=== PATIENT | male | born 1995 | race Caucasian/White ===

== ENCOUNTER 2016-10-02 18:33 | Emergency (ER) | payer OTHER ==
[2016-10-02 20:27] VITALS: BP 146/86
--- NOTE | 2016-10-02 21:29 | UC ---
[facility] HPI - HPI Summary HPI Summary: left posterior lower dental pain tooth #19 - History of Current Complaint Chief Complaint: UCDentalProblem Stated Complaint: TOOTH PAIN Hx Obtained From: Patient Onset/Duration: Gradual Onset, Lasting Days, Still Present Severity: Moderate Pain Intensity: 6 Pain Scale Used: 0-10 Numeric Aggravating: Nothing Alleviating: Nothing Related History: Previous Dental Care on Same Tooth - Allergies/Home Medications Allergies/Adverse Reactions: Allergies Allergy/AdvReac Type Severity Reaction Status Date / Time Ceftibuten [From Cedax] Allergy Severe Rash Verified 10/02/16 20:27 Cephalosporins Allergy Severe Rash Verified 10/02/16 20:27 Sulfamethoxazole Allergy Severe Rash Verified 10/02/16 20:27 w/Trimethoprim [From Bactrim] Home Medications: Home Medications Acetaminophen [Tylenol] 650 mg PO PRN 10/02/16 [History] PMH/Surg Hx/FS Hx/Imm Hx Previously Healthy: Yes - Surgical History Surgical History: Yes Surgery Procedure, Year, and Place: WISDOM TEETH - Family History Known Family History: Positive: None Family History: denies cardio vascular issues infamily lineage - Social History Occupation: Student Lives: With Family Alcohol Use: Occasionally Substance Use Type: None Smoking Status (MU): Current Every Day Smoker Review of Systems Constitutional: Negative Skin: Negative Eyes: Negative ENT: Dental Pain Respiratory: Negative Cardiovascular: Negative Gastrointestinal: Negative Genitourinary: Negative Motor: Negative Neurovascular: Negative Musculoskeletal: Negative Neurological: Negative Psychological: Negative All Other Systems Reviewed And Are Negative: Yes Physical Exam Triage Information Reviewed: Yes Appearance: Well-Appearing, Well-Nourished, Pain Distress Vital Signs: Initial Vital Signs Temp 98.1 F 10/02/16 20:23 Pulse 62 10/02/16 20:23 Resp 16 10/02/16 20:23 BP 146/86 10/02/16 20:23 Pulse Ox 100 10/02/16 20:23 Vital Signs Reviewed: Yes Eye Exam: Normal Eyes: Positive: Conjunctiva Clear ENT Exam: Normal ENT: Positive: Normal ENT inspection, Hearing grossly normal, Pharynx normal, TMs normal. Negative: Nasal congestion, Nasal drainage, Tonsillar swelling, Tonsillar exudate, Trismus, Muffled/hoarse voice Dental Exam: Other Dental: Positive: Percussion Tenderness @ - #19 Neck exam: Normal Neck: Positive: Supple, Nontender, No Lymphadenopathy Respiratory Exam: Normal Respiratory: Positive: Chest non-tender, Lungs clear, Normal breath sounds, No respiratory distress, No accessory muscle use Cardiovascular Exam: Normal Cardiovascular: Positive: RRR, No Murmur, Pulses Normal, Brisk Capillary Refill Musculoskeletal Exam: Normal Musculoskeletal: Positive: Strength Intact, ROM Intact, No Edema Neurological Exam: Normal Neurological: Positive: Alert, Muscle Tone Normal Psychological Exam: Normal Psychological: Positive: Normal Response To Family Skin Exam: Normal Dental Complaint Course/Dx - Course Course Of Treatment: Amoxicillin painmed follow with dentist on Wednesday - Differential Dx/Diagnosis Differential Diagnosis/Dx: Dental Abscess, Dental Caries, Fractured Tooth, Odontogenic Pain Provider Diagnoses: Dental pain, abscess Discharge - Discharge Plan Condition: Stable Disposition: HOME Prescriptions: Amoxicillin CAP* 500 mg PO TID #29 cap Hydrocodone-Acetaminophen [Hydrocodone/Acetaminophen 5-325 mg] 1 tab PO Q6HR PRN #12 tab MDD 4 PRN Reason: Pain Ibuprofen TAB* [Motrin TAB* 600 MG] 600 mg PO Q6H PRN #30 tab PRN Reason: pain Patient Education Materials: Dental Abscess (ED), Toothache (ED) Referrals: [facility] TOSIN Gallagher [Primary Care Provider] - Additional Instructions: Follow up with your dentist Wednesday as planned
[2016-10-02] MEDS ORDERED: HYDROcodone/ACETAMIN 5-325 MG* 1 TAB PO ONE (21:30)
[2016-10-02] MEDS ORDERED: Amoxicillin PO (*) 500 MG CAP PO ONE (21:30)
== END 2016-10-02 21:50 | disposition home or self-care (01) ==
LOC: UCEAST 18:33
DX: K04.7 Periapical abscess without sinus (principal); K08.89 Other specified disorders of teeth and supporting structures; Z88.1 Allergy status to other antibiotic agents; Z88.2 Allergy status to sulfonamides; F17.210 Nicotine dependence, cigarettes, uncomplicated
CPT/HCPCS: 99202; A9270-GY; G0463

== ENCOUNTER 2016-10-04 17:30 | Emergency (ER) | payer OTHER ==
[2016-10-04 17:37] VITALS: BP 138/49
[2016-10-04] MEDS ORDERED: Ketorolac INJ* 60 MG/2 ML VIAL IM ONE (18:02)
[2016-10-04] MEDS ORDERED: HYDROcodone/ACETAMIN 5-325 MG* 1 TAB PO ONE (18:02)
[2016-10-04] MEDS ORDERED: KETOROLAC 10 MG PO ONE (18:04)
--- NOTE | 2016-11-10 17:54 | ED ---
Throat Pain/Nasal Congestion - HPI Summary HPI Summary: Pt here w/ Lt lower dental pain s/p repair at dentist office few days ago. Worse w/ hot, cold and air exposure. He's concerned something is trapped or pressing onto nerve - requesting dental XR. Denies fever, chills, swelling, drainage or foul taste in mouth, difficulty breathing or swallowing. No known complication with procedure. - History of Current Complaint Chief Complaint: EDDentalPain Time Seen by Provider: 10/04/16 17:47 Hx Obtained From: Patient - Allergies/Home Medications Allergies/Adverse Reactions: Allergies Allergy/AdvReac Type Severity Reaction Status Date / Time Ceftibuten [From Cedax] Allergy Severe Rash Verified 10/04/16 17:33 Cephalosporins Allergy Severe Rash Verified 10/04/16 17:33 Sulfamethoxazole Allergy Severe Rash Verified 10/04/16 17:33 w/Trimethoprim [From Bactrim] PMH/Surg Hx/FS Hx/Imm Hx Previously Healthy: Yes Endocrine/Hematology History: Denies: Hx Anticoagulant Therapy, Hx Blood Disorders, Autoimmune Disease Respiratory History: Denies: Hx Asthma - Surgical History Surgery Procedure, Year, and Place: WISDOM TEETH Infectious Disease History: No Infectious Disease History: Denies: Traveled Outside the [place] in Last 30 Days - Family History Known Family History: Positive: None Family History: denies cardio vascular issues infamily lineage - Social History Occupation: Student Lives: With Family - roommate Alcohol Use: Occasionally Hx Substance Use: No Substance Use Type: Reports: None Smoking Status (MU): Current Every Day Smoker Review of Systems Negative: Fever, Chills Positive: Dental Pain - see HPI. Negative: Sore Throat, Ear Ache, Nasal Discharge Negative: Chest Pain Negative: Shortness Of Breath Negative: Vomiting, Nausea Positive: no symptoms reported Negative: Decreased ROM, Edema Negative: Rash, Bruising Negative: Headache, Weakness, Paresthesia, Numbness Psychological: Normal All Other Systems Reviewed And Are Negative: Yes Physical Exam Triage Information Reviewed: Yes Vital Signs On Initial Exam: Initial Vitals Temp Pulse Resp BP Pulse Ox 98.0 F 74 18 138/49 100 10/04/16 17:33 10/04/16 17:33 10/04/16 17:33 10/04/16 17:33 10/04/16 17:33 Vital Signs Reviewed: Yes Appearance: Positive: Well-Appearing, No Pain Distress, Well-Nourished Skin: Positive: Warm, Dry - no overlying erythema, ecchymosis or lesions Head/Face: Positive: Normal Head/Face Inspection - no edema Eyes: Positive: Normal, EOMI, ESTER, Conjunctiva Clear. Negative: Conjunctiva Inflammed, Discharge ENT: Positive: Normal ENT inspection, Hearing grossly normal, Pharynx normal, TMs normal. Negative: Nasal congestion, Nasal drainage, Trismus Dental: Positive: Percussion Tenderness @. Negative: Dental Fracture @, Abscess @ Neck: Positive: Supple, Nontender, No Lymphadenopathy Respiratory/Lung Sounds: Positive: Clear to Auscultation, Breath Sounds Present. Negative: Rales, Rhonchi, Wheezes Cardiovascular: Positive: Normal, RRR Abdomen Description: Positive: Nontender, Soft Bowel Sounds: Positive: Present Musculoskeletal: Positive: Normal, Strength/ROM Intact Neurological: Positive: Normal, Sensory/Motor Intact, Alert, Oriented to Person Place, Time, CN Intact II-III Psychiatric: Positive: Normal Diagnostics - Vital Signs Vital Signs Temp Pulse Resp BP Pulse Ox 10/04/16 17:33 98.0 F 74 18 138/49 100 - Laboratory Lab Statement: Any lab studies that have been ordered have been reviewed, and results considered in the medical decision making process. EENT Course/Dx - Course Course Of Treatment: Pt's dentition appears to be healthy and intact. Suspect he may have nerve pain s/p procedure. Will provide pain medication but also anbx in the event he has a trapped infection. Pt agrees to f/u w/ dentist this week and return to ED sooner if he develops acute facial swelling, fever, neck pain, trouble breathing or swallowing. - Diagnoses Provider Diagnoses: TOOTHACHE Discharge - Discharge Plan Condition: Stable Disposition: HOME Prescriptions: Hydrocodone-Acetaminophen [Hydrocodone/Acetaminophen 5-325 mg] 1 tab PO Q6HR PRN #12 tab MDD 4 PRN Reason: Pain Ketorolac TAB (NF) [Toradol TAB (NF)] 10 mg PO Q6H #16 tab Patient Education Materials: Toothache (ED) Referrals: MIKHAIL BERNSTEIN [Doctor of Dental Surgery] - [facility] TOSIN Gallagher [Primary Care Provider] - Additional Instructions: Complete course of amoxicillin Start toradol and take every 6 hours with food for 5 days - do not take with advil, ibuprofen, aleve or naproxen. You may take norco as needed for breakthrough pain - may cause drowsiness - do not operate machinery. May also cause constipation- increase water, fiber and consider stool softener. Follow-up with dentist this week. An oral surgeon contact has been provided for you as well. *If you develop fever, facial/neck swelling, headache, difficulty swallowing or breathing, return to ED
== END 2016-10-04 18:46 | disposition home or self-care (01) ==
LOC: ED 17:30
DX: K08.89 Other specified disorders of teeth and supporting structures (principal)
CPT/HCPCS: 96372; 99282; J1885

== ENCOUNTER 2017-12-20 22:47 | Emergency (ER) | payer OTHER ==
--- NOTE | 2017-12-20 23:28 | ED ---
Lower Extremity - HPI Summary HPI Summary: 22-year-old male presents with right ankle injury today. He states he fell 8 feet off the bouldering wall landed on his right ankle. He states that his ankle was deformed but then he tried to step on it and it reduced itself. He denies any numbness or tingling. Denies any previous injury to the area. He has not been able to place weight on the area since. His pain is a 4 out of 10 at rest. He denies any other injury. He denies any knee pain. He denies any back pain. He hasn't taking anything for his symptoms. - History of Current Complaint Chief Complaint: EDExtremityLower Stated Complaint: RT ANKLE INJURY Time Seen by Provider: 12/20/17 22:57 Pain Intensity: 6 - Allergies/Home Medications Allergies/Adverse Reactions: Allergies Allergy/AdvReac Type Severity Reaction Status Date / Time ceftibuten [From Cedax] Allergy Severe Rash Verified 12/20/17 23:24 Cephalosporins Allergy Severe Rash Verified 12/20/17 23:24 sulfamethoxazole Allergy Severe Rash Verified 12/20/17 23:24 [From Bactrim] trimethoprim [From Bactrim] Allergy Severe Rash Verified 12/20/17 23:24 Home Medications: Home Medications Ibuprofen [Advil] 400 mg PO Q6HR PRN 12/20/17 [History Confirmed 12/20/17] PMH/Surg Hx/FS Hx/Imm Hx Endocrine/Hematology History: Denies: Hx Anticoagulant Therapy, Hx Blood Disorders Respiratory History: Denies: Hx Asthma - Surgical History Surgery Procedure, Year, and Place: WISDOM TEETH Infectious Disease History: No Infectious Disease History: Reports: Traveled Outside the [place] in Last 30 Days - [place] - Family History Known Family History: Positive: None Family History: denies cardio vascular issues infamily lineage - Social History Alcohol Use: Occasionally Hx Substance Use: No Substance Use Type: Reports: None Smoking Status (MU): Never Smoked Tobacco Review of Systems Negative: Fever Negative: Chest Pain Negative: Shortness Of Breath Positive: Myalgia - right ankle pain All Other Systems Reviewed And Are Negative: Yes Physical Exam Triage Information Reviewed: Yes Vital Signs On Initial Exam: Initial Vitals Temp Pulse Resp BP Pulse Ox 97.9 F 62 18 103/72 99 12/20/17 22:51 12/20/17 22:51 12/20/17 22:51 12/20/17 22:51 12/20/17 22:51 Vital Signs Reviewed: Yes Appearance: Positive: Well-Appearing Skin: Positive: Warm, Dry Head/Face: Positive: Normal Head/Face Inspection Eyes: Positive: Normal, Conjunctiva Clear Respiratory/Lung Sounds: Positive: Clear to Auscultation, Breath Sounds Present Cardiovascular: Positive: Normal, RRR Musculoskeletal: Positive: Limited @ - right ankle, Edema Right - ankle, Other - pos ana squeeze, good pulses, sensation grossly intact, capillary refill <2 secs, tenderness lateral aspect of ankle Neurological: Positive: Normal Psychiatric: Positive: Normal Procedures - Splinting Location: right ankle Splint: posterior walking Pre-Proc Neuro Vasc Exam: normal Post-Proc Neuro Vasc Exam: normal Diagnostics - Vital Signs Vital Signs Temp Pulse Resp BP Pulse Ox 12/20/17 23:01 61 126/63 97 12/20/17 22:51 97.9 F 62 18 103/72 99 - Laboratory Lab Statement: Any lab studies that have been ordered have been reviewed, and results considered in the medical decision making process. - Radiology ankle Xray Interpretation: No Acute Changes Radiology Interpretation Completed By: ED Physician Lower Extremity Course/Dx - Course Course Of Treatment: 22-year-old male presents with right ankle injury today. He states he fell 8 feet off the bouldering wall landed on his right ankle. He states that his ankle was deformed but then he tried to step on it and it reduced itself. He denies any numbness or tingling. Denies any previous injury to the area. He has not been able to place weight on the area since. His pain is a 4 out of 10 at rest. He denies any other injury. He denies any knee pain. He denies any back pain. He hasn't taking anything for his symptoms. On exam has edema to right ankle. Neurovascularly intact. X-ray read by Dr. Hopper and me as normal. Placed in a posterior splint. will have follow-up with orthopedic. Patient understands agrees with plan. - Diagnoses Differential Diagnosis/HQI/PQRI: Positive: Dislocation, Fracture (Closed), Sprain, Strain Provider Diagnoses: Right ankle injury Discharge - Sign-Out/Discharge Documenting (check all that apply): Discharge/Admit/Transfer - Discharge Plan Condition: Good Disposition: HOME Prescriptions: traMADol TAB* [Ultram*] 25 mg PO Q6HR PRN #12 tab MDD 4 PRN Reason: Pain Patient Education Materials: Ankle Dislocation (ED) Referrals: Jo Salvador MD [Medical Doctor] - Additional Instructions: Use crutches and stay nonweight bearing Keep splint on area and keep dry Call ortho office tomorrow to set up appointment for follow up Use ibuprofen for pain every 6 hours and use narcotic for breakthrough pain Ice, elevate Return to ED if develop any new or worsening symptoms - Billing Disposition and Condition Condition: GOOD Disposition: HOME
[2017-12-20] MEDS ORDERED: traMADol TAB* 50 MG PO ONE (23:53)
[2017-12-21 00:14] VITALS: BP 129/67
--- NOTE | 2017-12-21 08:03 | RAD ---
Indication: RIGHT ankle pain and edema following reported transient dislocation. Comparison: No relevant prior exams available on the [facility] [facility] for comparison. Technique: AP, mortise, and lateral views RIGHT ankle. REPORT AND IMPRESSION: Negative for fracture, osteochondral lesion, or malalignment. Small talocrural joint effusion. Soft tissue swelling most prominent over the lateral malleolus.
== END 2017-12-21 00:18 | disposition home or self-care (01) ==
LOC: ED 22:47
DX: S99.911A Unspecified injury of right ankle, initial encounter (principal); W17.89XA Other fall from one level to another, initial encounter; Y93.9 Activity, unspecified; Y92.9 Unspecified place or not applicable; Z88.1 Allergy status to other antibiotic agents; Z88.2 Allergy status to sulfonamides
CPT/HCPCS: 99282; A9270-GY